=== PATIENT | female | born 1950 | race Caucasian/White ===

== ENCOUNTER 2018-09-03 14:26 | Emergency (ER) | payer MEDICARE, OTHER ==
[~2018-09-03] VITALS: Ht 154.9 cm; Wt 76.2 kg
[~2018-09-03 14:26] MED LIST: ALBU90OI INH; AMOX500 PO; ASPI325; ASPI325 PO; ASPI81EC PO; BACPOLTO30 TP; CALCAVITDA PO; CEPH500 PO; DEXA4 PO; ERYT.5TO OD; ERYT.5TO OU; FEXPSEER PO; HYDACE10B PO; HYDACE5 PO; IBUP400 PO; KETO.5OPSO RIGHTEYE; METF500; METR500 PO; NAPR500 PO; Naprosyn500 MG PO; Nasonex17 GM; OMEG1CAP30; OMEG1CAP30 PO; PRAM.5 PO; PROM25 PO; SULTRIDS PO; TOBR.3OPSO OP; Veetids 500500 MG PO; [UNRECOGNIZED DRUG - OTHER]; [UNRECOGNIZED DRUG - REMARK]
[2018-09-03 15:03] LABS: BASOPHILS ABSOLUTE AUTO 0.09 K/mm3 (0.00-0.23); BASOPHILS PERCENT AUTO 1 % (0-2); EOSINOPHILS PERCENT AUTO 4 % (0-6); Hematocrit 45.2 % (33.0-51.0); Hemoglobin 15.5 g/dL (11.5-16.0); IMMATURE GRAN ABSOLUTE AUTO 0.05 K/mm3 (0.00-0.10); IMMATURE GRAN PERCENT AUTO 1 % (0-1); LYMPHOCYTES ABSOLUTE AUTO 4.33 K/mm3 (0.84-5.20); LYMPHOCYTES PERCENT AUTO 42 % (21-46); MONOCYTES PERCENT AUTO 7 % (4-13); Mean Corpuscular HGB 32.2 pg (26.0-34.0); Mean Corpuscular HGB Conc 34.3 g/dL (31.5-36.5); Mean Corpuscular Volume 94 fL (80-100); NEUTROPHILS PERCENT AUTO 46 % (41-73); Platelet Count 276 K/mm3 (150-400); RDW Coefficient Variation 12.9 % (11.7-14.2); RDW Standard Deviation 44.8 fL (35.1-46.3); Red Blood Cell Count 4.81 M/mm3 (3.80-5.20); White Blood Cell Count 10.27 K/mm3 (4.00-11.30)
[2018-09-03 15:25] LABS: Alanine Aminotransfer (ALT/SGP 25 U/L (12-78); Albumin, Blood 3.3 g/dL (3.4-5.0); Albumin/Globulin Ratio 0.9 (0.8-1.8); Alk Phos 110 U/L (50-136); Anion Gap 6 mmol/L (6-16); Aspartate Aminotrans (AST/SGOT 11 U/L (12-37); Bilirubin, Total 0.2 mg/dL (0.1-1.0); Blood Urea Nitrogen 10 mg/dL (8-24); Bun/Creatinine Ratio 11.5 (12.0-20.0); CO2, Blood 27 mmol/L (21-32); Calcium, Blood 8.9 mg/dL (8.5-10.1); Chloride, Blood 106 mmol/L (98-108); Creatinine, Blood 0.87 mg/dL (0.40-1.00); Globulin, Blood 3.6 g/dL (2.2-4.0); Glomerular Filtration Rate >60 (60-); Glucose, Blood 122 mg/dL (70-99); Sodium, Blood 139 mmol/L (136-145); Total Protein, Blood 6.9 g/dL (6.4-8.2)
[2018-09-03 16:09] LABS: Source, Urine Clean Catch
[2018-09-03 16:21] LABS: Appearance, Urine Clear (Clear); Bilirubin, Urine Neg (Neg); Blood, Urine 2+ (Neg); Color, Urine Yellow (P-Yellow); Glucose Qualitative, Urine Neg (Neg); Ketones, Urine Neg (Neg); Leukocyte Esterase, Urine Neg (Neg); Nitrite, Urine Neg (Neg); Protein, Urine Neg (Neg); Specific Gravity, Urine 1.015 (1.003-1.022); Urobilinogen, Urine NORM (Normal)
[2018-09-03 16:42] LABS: Squamous Epithelial Cells Few /hpf (Few)
[2018-09-03 16:43] LABS: Bacteria Rare /hpf; White Blood Cells, Urine Not Seen /hpf (0-5)
== END 2018-09-03 17:17 | disposition home or self-care (01) ==
LOC: ER 14:26
PROVIDERS: Physician Assistant
DX: E11.649 Type 2 diabetes mellitus with hypoglycemia without coma (principal); R55 Syncope and collapse; Z79.899 Other long term (current) drug therapy; Z79.84 Long term (current) use of oral hypoglycemic drugs; Z79.82 Long term (current) use of aspirin; F17.210 Nicotine dependence, cigarettes, uncomplicated
CPT/HCPCS: 36415; 80053; 81001; 82947; 83690; 85025; 93005; 93010; 99284-25

== ENCOUNTER → 2021-07-11 | Outpatient (CLI) | payer MEDICARE | END | disposition home or self-care (01) | LOC: LAB SHORT 18:15 → LAB 18:15 | DX: E11.9 Type 2 diabetes mellitus without complications (principal) | CPT/HCPCS: 82043 ==

== ENCOUNTER 2024-04-09 23:35 | Emergency (ER) | payer OTHER ==
[~2024-04-09] VITALS: Ht 160 cm; Wt 81.7 kg
[~2024-04-09 23:35] MED LIST changes: +MECL25 PO
[2024-04-09 23:43] VITALS: BP 140/72
== END 2024-04-10 00:38 | disposition home or self-care (01) ==
LOC: ER 23:35
DX: R59.1 Generalized enlarged lymph nodes (principal); E11.9 Type 2 diabetes mellitus without complications; F17.210 Nicotine dependence, cigarettes, uncomplicated; Z79.84 Long term (current) use of oral hypoglycemic drugs; Z79.82 Long term (current) use of aspirin; Z79.899 Other long term (current) drug therapy
CPT/HCPCS: 99283